=== PATIENT | male | born 1950 | race Caucasian/White ===

== ENCOUNTER 2018-11-10 14:22 | Emergency (ER) | payer MEDICARE, BC ==
--- NOTE | 2018-11-10 15:49 | EDM.PDOC ---
ED HPI GENERAL MEDICAL PROBLEM - General Chief Complaint: Genitourinary Problem Stated Complaint: TROUBLE URINATING Time Seen by Provider: 11/10/18 15:04 Source of Information: Reports: Patient History Limitations: Reports: No Limitations - History of Present Illness INITIAL COMMENTS - FREE TEXT/NARRATIVE: Patient is a 68-year-old gentleman who presents to the emergency department this afternoon with complaint of urinary retention. Patient states that he underwent prostate radiation therapy in August 2018. He said recently he doesn't feel like he completely empties his bladder. He said the symptoms are getting worsen and now is feeling pressure. Patient denies burning sensation when he urinates, nausea, vomiting, diarrhea, abdominal pain, fever, or blood in urine. Onset: Gradual Duration: Day(s): Quality: Reports: Pressure Severity: Mild Improves with: Reports: None Worsens with: Reports: None Associated Symptoms: Reports: No Other Symptoms - Related Data Allergies Allergy/AdvReac Type Severity Reaction Status Date / Time Penicillins Allergy Difficulty Verified 11/10/18 14:45 Breathing Home Meds: Home Meds Aspirin 325 mg PO DAILY 11/10/18 [History] Benazepril [Lotensin] 40 mg PO DAILY 11/10/18 [History] Social & Family History - Tobacco Use Smoking Status *Q: Never Smoker - Recreational Drug Use Recreational Drug Use: No ED ROS GENERAL - Review of Systems Review Of Systems: ROS reveals no pertinent complaints other than HPI. Constitutional: Reports: No Symptoms HEENT: Reports: No Symptoms Respiratory: Reports: No Symptoms Cardiovascular: Reports: No Symptoms Endocrine: Reports: No Symptoms GI/Abdominal: Reports: No Symptoms : Reports: Urinary Retention Musculoskeletal: Reports: No Symptoms Skin: Reports: No Symptoms Neurological: Reports: No Symptoms Psychiatric: Reports: No Symptoms Hematologic/Lymphatic: Reports: No Symptoms Immunologic: Reports: No Symptoms ED EXAM, RENAL/ - Physical Exam Exam: See Below Exam Limited By: No Limitations General Appearance: Alert, WD/WN, No Apparent Distress Throat/Mouth: Normal Inspection, Normal Oropharynx, No Airway Compromise Head: Atraumatic, Normocephalic Respiratory/Chest: No Respiratory Distress, Lungs Clear, Normal Breath Sounds, No Accessory Muscle Use, Chest Non-Tender Cardiovascular: Regular Rate, Rhythm, No Murmur GI/Abdominal: Normal Bowel Sounds, Soft, Non-Tender (Male) Exam: No Hernia, Other (Unable to access the meatus, head of penis is very firm and there is no access.). No: Circumcised, Scrotal Swelling, Scrotum Tenderness (L), Scrotum Tenderness (R), Testicular Mass, Testicular Tenderness ( L), Testicular Tenderness (R) Back Exam: Normal Inspection. No: CVA Tenderness (L), CVA Tenderness (R) Extremities: Normal Inspection Neurological: Alert, Oriented, Normal Cognition Psychiatric: Normal Affect, Normal Mood Skin Exam: Warm, Dry, Intact, Normal Color, No Rash Course - Vital Signs Last Recorded V/S: Last Vital Signs Temp 99.0 F 11/10/18 14:56 Pulse 95 11/10/18 14:56 Resp 18 11/10/18 14:56 BP 154/80 H 11/10/18 14:56 Pulse Ox 95 11/10/18 14:56 - Orders/Labs/Meds Orders: Active Orders 24 hr Category Date Time Status Insert Urinary Catheter [OM.PC] Q24H Care 11/10/18 15:15 Ordered Urinary Catheter Assessment [RC] ASDIRECTED Care 11/10/18 15:16 Ordered Labs: Laboratory Tests 11/10/18 Range/Units 15:18 Specimen Type Urinfol Urine Color Light yellow (YELLOW) Urine Appearance Clear (CLEAR) Urine pH 6.0 (5.0-9.0) Ur Specific [place] 1.010 (1.005-1.030) Urine Protein Negative (NEGATIVE) mg/dL Urine Glucose (UA) Negative (NEGATIVE) mg/dL Urine Ketones Negative (NEGATIVE) mg/dL Urine Occult Blood Negative (NEGATIVE) Urine Nitrite Negative (NEGATIVE) Urine Bilirubin Negative (NEGATIVE) Urine Urobilinogen 0.2 (0.2-1.0) E.U./dL Ur Leukocyte Esterase Trace H (NEGATIVE) Urine RBC 0-5 (0-5) /HPF Urine WBC 0-5 (0-5) /HPF Ur Epithelial Cells Occasional /LPF Urine Bacteria Occasional (NONE TO FEW) /HPF - Re-Assessments/Exams Free Text/Narrative Re-Assessment/Exam: 11/10/18 15:48 Patient afebrile, vital signs stable, 450 mL on bladder scan. Unable to place an indwelling catheter Patient will follow-up with PCP and urology. 11/10/18 15:54 Departure - Departure Time of Disposition: 15:49 Disposition: Home, Self-Care 01 Condition: Good Clinical Impression: Retention of urine - Discharge Information Referrals: PCP,Unknown [Primary Care Provider] - Forms: ED Department Discharge Additional Instructions: Follow-up at [facility] on Monday. Urology referral required. Return to emergency room sooner if symptoms continue or worsen. - My Orders Last 24 Hours: My Active Orders 11/10/18 15:15 Insert Urinary Catheter [OM.PC] Q24H 11/10/18 15:16 Urinary Catheter Assessment [RC] ASDIRECTED - Assessment/Plan Last 24 Hours: My Active Orders 11/10/18 15:15 Insert Urinary Catheter [OM.PC] Q24H 11/10/18 15:16 Urinary Catheter Assessment [RC] ASDIRECTED Assessment:: Urinary retention Plan: Follow-up with PCP and urology
== END 2018-11-10 16:10 | disposition home or self-care (01) ==
LOC: KA.ED 14:22
DX: R33.9 Retention of urine, unspecified (principal); I10 Essential (primary) hypertension; Z79.82 Long term (current) use of aspirin; Z79.899 Other long term (current) drug therapy; Z88.0 Allergy status to penicillin; Z85.46 Personal history of malignant neoplasm of prostate
CPT/HCPCS: 51702; 81001; 99283; 99284

== ENCOUNTER 2019-02-13 09:05 | Day surgery (SDC) | payer MEDICARE, BC ==
[~2019-02-13 09:05] MED LIST: Lactated Ringers 1,000 ML IV SCH; Sodium Chloride 0.9% 10 ML Syringe FLUSH PRN
[2019-02-13] MEDS ORDERED: Midazolam 1 MG/ML 2 ML SDV ONE ×2 (10:31→10:49)
[2019-02-13] MEDS ORDERED: Propofol 200 MG/20 ML SDV ONE (10:31)
[2019-02-13] MEDS ORDERED: Ketamine 500 mg/10 ML MDV ONE (10:31)
[2019-02-13] MEDS ORDERED: ceFAZolin 1 GM Vial ONE (10:32)
[2019-02-13] MEDS ORDERED: Lidocaine 2% Jelly 5 ML Tube ONE ×2 (10:46→12:00)
[2019-02-13] MEDS ORDERED: Bupivacaine 0.5% 30 ML SDV ONE (11:01)
[2019-02-13] MEDS ORDERED: Midazolam 1 MG/ML 2 ML SDV IV ONE (11:39)
[2019-02-13] MEDS ORDERED: Ketamine 200 MG/20 ML MDV IV ONE (11:39)
[2019-02-13] MEDS ORDERED: Propofol 200 MG/20 ML SDV IV ONE (11:39)
[2019-02-13] MEDS ORDERED: ceFAZolin 1 GM Vial IV ONE (11:39)
--- NOTE | 2019-02-13 12:28 | PCM.OPNOTE ---
- General Post-Op/Procedure Note Date of Surgery/Procedure: 02/13/19 Operative Procedure(s): Meatal stenosis, urethral stenosis. Pre Op Diagnosis: As above. Recent was found to have severe meatal stenosis and moderate urethral stenosis at the tip of his urethra. Anesthesia Technique: MAC Primary Surgeon: Maria A Mota Complications: None Condition: Good Free Text/Narrative:: Intake & Output 02/12/19 02/13/19 02/13/19 22:59 06:59 14:59 Output Total 150 Balance -150 Preoperative diagnosis: Severe meatal stenosis, possible urethral stenosis recent radiation therapy for prostate carcinoma. Recent acute urinary retention Postoperative diagnosis: As above and urethrostenosis at the tip of the urethra. Informed consent was obtained the patient regarding this procedure. All possible complications were thoroughly discussed with these include infection, pain, bleeding, incontinence and other unknown complications. The patient decided to proceed. He was kept in the lithotomy position after adequate sedation. His genitals were thoroughly prepped and draped in the usual fashion. Examination revealed severe meatal stenosis. The Shelton catheter was removed a small meatotomy was made inferiorly and then I passed a forward-viewing Peter Zeiss cystoscope over a 17 Czech obturator sheath. There was moderate urethral stenosis at the terminal 1 inch of the urethra. The rest of the urethra was normal. Bladder mucosa was slightly congested. The ureteric orifices could not be clearly visualized. There was no evidence of stone or neoplasm. Urethra was then dilated up to #32 dilators gently. A 12 Czech Shelton catheter was placed. Returning urine was clear. The patient was transferred to the recovery room in an excellent condition. Follow-up in the clinic in 2 days to have the catheter removed.
[2019-02-13] MEDS ORDERED: Sodium Chloride 0.9% 50 ML IV PRN (12:37)
== END 2019-02-13 14:40 | disposition home or self-care (01) ==
LOC: KA.SDS 09:05
PROVIDERS: ATTEND Family Medicine
DX: N35.911 Unspecified urethral stricture, male, meatal (principal); N32.89 Other specified disorders of bladder; N39.0 Urinary tract infection, site not specified; I10 Essential (primary) hypertension; E78.5 Hyperlipidemia, unspecified; G47.30 Sleep apnea, unspecified; L40.9 Psoriasis, unspecified; E66.01 Morbid (severe) obesity due to excess calories; Z68.43 Body mass index [BMI] 50.0-59.9, adult; Z88.0 Allergy status to penicillin; Z79.82 Long term (current) use of aspirin; Z79.899 Other long term (current) drug therapy
CPT/HCPCS: 00910; J0690; J1580; J2250; J2704; J7050; J7120

== ENCOUNTER 2021-05-03 07:50 | Emergency (ER) | payer MEDICARE, BC ==
[2021-05-03] MEDS ORDERED: Sodium Chloride 0.9% 10 ML Syringe FLUSH PRN ×3 (08:15→10:01)
--- NOTE | 2021-05-03 08:18 | EDM.PDOC ---
ED HPI GENERAL MEDICAL PROBLEM - General Chief Complaint: General Stated Complaint: NOT FEELING WELL Time Seen by Provider: 05/03/21 08:18 Source of Information: Reports: Patient, EMS - History of Present Illness INITIAL COMMENTS - FREE TEXT/NARRATIVE: Frandy, 70-year-old male, presents by ambulance to the emergency department this morning as he states he has not been feeling well for the past 3 days. This episode includes worsening weakness, inability to complete his daily regimen. States he was so weak he had to lay down at least twice, the once sounding like it was at his residence as he states between the bed and the sink. The most recent, this morning prior to ambulance being dispatched, was outside of the lumbar mall where he was too weak to water his tolbert. The event at his residence is noted that he had weakness and could not get up, states he developed pain from laying so long to his chest. He is not specific if this was cardiac type chest pain or just pain from pressure situation. He had an event of loose stool but he attributes that to eating a chocolate brownie. Denies any discomfort at this time other than when he has to be in bed as he does not tolerate supine nor even semifowler positioning. He denies any exposures, risk factors for exposures or other contributing concerns of pandemic quality. Onset: Gradual - Related Data Allergies Allergy/AdvReac Type Severity Reaction Status Date / Time Penicillins Allergy Difficulty Verified 05/03/21 08:31 Breathing Home Meds: Home Meds Aspirin 325 mg PO DAILY 11/10/18 [History] Benazepril [Lotensin] 40 mg PO DAILY 11/10/18 [History] Meclizine [Antivert] 25 mg PO Q4HR PRN 02/12/19 [History] Tamsulosin [Tamsulosin 24 Hr] 0.4 mg PO DAILY 02/12/19 [History] Triamcinolone Acetonide [Triamcinolone Acetonide 0.1% Oint] 1 applic TOP DAILY PRN 02/12/19 [History] Esomeprazole [NexIUM] 20 mg PO DAILY PRN 05/03/21 [History] atorvaSTATin [Lipitor] 10 mg PO BEDTIME 05/03/21 [History] Past Medical History HEENT History: Reports: Cataract, Hard of Hearing, Impaired Vision Cardiovascular History: Reports: Hypertension Respiratory History: Reports: None Genitourinary History: Reports: Prostate Disorder, Urinary Incontinence, Other (See Below) Other Genitourinary History: Prostate cancer, patient states he has had meatus cut bigger Neurological History: Reports: None Psychiatric History: Reports: None Endocrine/Metabolic History: Reports: Diabetes, Type II (Presumed with recent elevation, has been offered Metformin therapy and other treatments, has deferred), Obesity/BMI 30+ Oncologic (Cancer) History: Reports: Prostate Other Oncologic History: Had radiation - Infectious Disease History Infectious Disease History: Reports: Measles - Past Surgical History Cardiovascular Surgical History: Reports: None - Past Imaging History Past Imaging History: Reports: Ultrasound, Xray Social & Family History - Family History Family Medical History: No Pertinent Family History - Caffeine Use Caffeine Use: Reports: Soda ED ROS GENERAL - Review of Systems Review Of Systems: Comprehensive ROS is negative, except as noted in HPI. ED EXAM, GENERAL - Physical Exam Exam: See Below Free Text/Narrative:: Alert, oriented, he denies any distress. He is cheerful and conversive. He is mildly ashen in his overall color with no cyanosis. HEENT is negative discharge or deformity. PERRLA no icterus no injection. Moist membranes. Rhoades short neck with no rigidity. Breath sounds are diminished throughout but overall clear, likely due to body habitus. Cardiac is consistent with atrial fibrillation with very distant heart sounds likely contributed by body habitus. He has a very weak radial pulse which would be consistent with his atrial fibrillation. Extremely large rotund abdomen with no assessment properties obtained, no tenderness. rectal is deferred. He has +2 edema to the lower extremities. He is able to move himself about seated, from the bed, to the chair, to the bed, to the chair, stating when asked about discomfort that the bed is very uncomfortable for him. #1 Interpretation EKG Date: 05/03/21 Time: 08:24 Rhythm: A-Fib Rate (Beats/Min): 130 [place]: Other P-Wave: Absent QRS: Wide ST-T: Normal QT: Normal Comparison: NA - No Prior EKG Course - Vital Signs Last Recorded V/S: Last Vital Signs Temp 97 F 05/03/21 08:16 Pulse 130 H 05/03/21 08:16 Resp 24 H 05/03/21 08:16 BP 95/67 05/03/21 08:16 Pulse Ox 96 05/03/21 08:16 - Orders/Labs/Meds Orders: Active Orders 24 hr Category Date Time Status EKG Documentation Completion [RC] ASDIRECTED Care 05/03/21 08:15 Active Peripheral IV Care [RC] . DIRECTED Care 05/03/21 08:15 Active Peripheral IV Care [RC] . DIRECTED Care 05/03/21 08:28 Active Peripheral IV Care [RC] . DIRECTED Care 05/03/21 10:02 Active CULTURE BLOOD [BC] Stat Lab 05/03/21 10:10 Received CULTURE BLOOD [BC] Stat Lab 05/03/21 10:55 Received UA RFX FLORENCE AND CULT IF INDIC [URIN] Stat Lab 05/03/21 08:28 Ordered Diltiazem 125 mg Med 05/03/21 10:00 Active Sodium Chloride 0.9% [Normal Saline] 100 ml IV TITRATE Heparin Sodium/D5W 250 ml Med 05/03/21 10:45 Active IV TITRATE Sodium Chloride 0.9% [Normal Saline] 1,000 ml Med 05/03/21 09:00 Active IV ASDIRECTED Sodium Chloride 0.9% [Saline Flush] Med 05/03/21 08:15 Active 10 ml FLUSH Q8HR PRN Sodium Chloride 0.9% [Saline Flush] Med 05/03/21 08:27 Active 10 ml FLUSH Q8HR PRN Sodium Chloride 0.9% [Saline Flush] Med 05/03/21 10:01 Active 10 ml FLUSH Q8HR PRN Blood Culture x2 Reflex Set [OM.PC] Stat Oth 05/03/21 10:04 Ordered Peripheral IV Insertion Adult [OM.PC] Routine Oth 05/03/21 08:15 Ordered Peripheral IV Insertion Adult [OM.PC] Stat Oth 05/03/21 08:28 Ordered Peripheral IV Insertion Adult [OM.PC] Stat Oth 05/03/21 10:02 Ordered Medication Orders Sodium Chloride (Normal Saline) 1,000 mls @ 150 mls/hr IV ASDIRECTED AMINATA Last Infusion: 05/03/21 10:04 Dose: 999 mls/hr Documented by: Admin: 05/03/21 09:00 Dose: 150 mls/hr Documented by: JALYN Diltiazem HCl 125 mg/ Sodium (Chloride) 125 mls @ 5 mls/hr IV TITRATE AMINATA Last Admin: 05/03/21 10:31 Dose: 5 mg/hr, 5 mls/hr Documented by: JALYN Heparin Sodium/Dextrose () 250 mls @ 25.401 mls/hr IV TITRATE AMINATA Last Admin: 05/03/21 11:31 Dose: 14 units/kg/hr, 25.401 mls/hr Documented by: JALYN Cosigned by: RAFITA Sodium Chloride (Sodium Chloride 0.9% 10 Ml Syringe) 10 ml FLUSH Q8HR PRN PRN Reason: keep vein open Sodium Chloride (Sodium Chloride 0.9% 10 Ml Syringe) 10 ml FLUSH Q8HR PRN PRN Reason: keep vein open Sodium Chloride (Sodium Chloride 0.9% 10 Ml Syringe) 10 ml FLUSH Q8HR PRN PRN Reason: keep vein open Labs: Laboratory Tests 05/03/21 05/03/21 05/03/21 Range/Units 08:42 08:42 08:42 WBC 13.69 H (5.00-10.00) 10^3/uL RBC 5.26 (4.50-6.00) 10^6/uL Hgb 13.8 (13.0-17.0) g/dL Hct 43.6 (40.0-52.0) % MCV 82.9 (82.0-92.0) fL MCH 26.2 L (27.0-31.0) pg MCHC 31.7 L (32.0-36.0) g/dL RDW 14.1 (11.5-14.5) % Plt Count 185 (150-400) 10^3/uL MPV 9.2 (7.4-10.4) fL Add Manual Diff Yes Neutrophils % (Manual) 94 H (50-70) % Lymphocytes % (Manual) 4 L (20-40) % Monocytes % (Manual) 2 (2-8) % Absolute Neutrophils 12.87 Lymphocytes # (Manual) 0.55 Monocytes # (Manual) 0.27 APTT (22.8-31.4) SEC D-Dimer, Quantitative (<400) ng/mL Sodium 134 L (136-145) mmol/L Potassium 3.8 (3.5-5.1) mmol/L Chloride 98 (98-107) mmol/L Carbon Dioxide 24.8 (21.0-32.0) mmol/L Anion Gap 15.0 (5-15) mmol/L BUN 38 H (7-18) mg/dL Creatinine 2.14 H (0.51-1.17) mg/dL Est Cr Clr Drug Dosing 34.70 mL/min Estimated GFR (MDRD) 31 mL/min Glucose 187 H (70-140) mg/dL Lactic Acid 2.3 H (0.4-2.0) mmol/L Calcium 8.3 L (8.7-10.3) mg/dL Total Bilirubin 0.4 (0.2-1.0) mg/dL AST 93 H (15-37) U/L ALT 50 (14-63) U/L Alkaline Phosphatase 61 (46-116) U/L Creatine Kinase 1960 H* (26-276) U/L Troponin I High Sens 16.200 (0-76.000) pg/mL B-Natriuretic Peptide (0-100) pg/mL Total Protein 6.6 (6.4-8.2) g/dL Albumin 2.70 L (3.40-5.00) g/dL 05/03/21 05/03/21 05/03/21 Range/Units 08:42 08:42 08:42 WBC (5.00-10.00) 10^3/uL RBC (4.50-6.00) 10^6/uL Hgb (13.0-17.0) g/dL Hct (40.0-52.0) % MCV (82.0-92.0) fL MCH (27.0-31.0) pg MCHC (32.0-36.0) g/dL RDW (11.5-14.5) % Plt Count (150-400) 10^3/uL MPV (7.4-10.4) fL Add Manual Diff Neutrophils % (Manual) (50-70) % Lymphocytes % (Manual) (20-40) % Monocytes % (Manual) (2-8) % Absolute Neutrophils Lymphocytes # (Manual) Monocytes # (Manual) APTT 34.4 H (22.8-31.4) SEC D-Dimer, Quantitative 1630 H (<400) ng/mL Sodium (136-145) mmol/L Potassium (3.5-5.1) mmol/L Chloride (98-107) mmol/L Carbon Dioxide (21.0-32.0) mmol/L Anion Gap (5-15) mmol/L BUN (7-18) mg/dL Creatinine (0.51-1.17) mg/dL Est Cr Clr Drug Dosing mL/min Estimated GFR (MDRD) mL/min Glucose (70-140) mg/dL Lactic Acid (0.4-2.0) mmol/L Calcium (8.7-10.3) mg/dL Total Bilirubin (0.2-1.0) mg/dL AST (15-37) U/L ALT (14-63) U/L Alkaline Phosphatase (46-116) U/L Creatine Kinase (26-276) U/L Troponin I High Sens (0-76.000) pg/mL B-Natriuretic Peptide 67 (0-100) pg/mL Total Protein (6.4-8.2) g/dL Albumin (3.40-5.00) g/dL 05/03/21 Range/Units 12:30 WBC (5.00-10.00) 10^3/uL RBC (4.50-6.00) 10^6/uL Hgb (13.0-17.0) g/dL Hct (40.0-52.0) % MCV (82.0-92.0) fL MCH (27.0-31.0) pg MCHC (32.0-36.0) g/dL RDW (11.5-14.5) % Plt Count (150-400) 10^3/uL MPV (7.4-10.4) fL Add Manual Diff Neutrophils % (Manual) (50-70) % Lymphocytes % (Manual) (20-40) % Monocytes % (Manual) (2-8) % Absolute Neutrophils Lymphocytes # (Manual) Monocytes # (Manual) APTT (22.8-31.4) SEC D-Dimer, Quantitative (<400) ng/mL Sodium (136-145) mmol/L Potassium (3.5-5.1) mmol/L Chloride (98-107) mmol/L Carbon Dioxide (21.0-32.0) mmol/L Anion Gap (5-15) mmol/L BUN (7-18) mg/dL Creatinine (0.51-1.17) mg/dL Est Cr Clr Drug Dosing mL/min Estimated GFR (MDRD) mL/min Glucose (70-140) mg/dL Lactic Acid 2.0 (0.4-2.0) mmol/L Calcium (8.7-10.3) mg/dL Total Bilirubin (0.2-1.0) mg/dL AST (15-37) U/L ALT (14-63) U/L Alkaline Phosphatase (46-116) U/L Creatine Kinase (26-276) U/L Troponin I High Sens (0-76.000) pg/mL B-Natriuretic Peptide (0-100) pg/mL Total Protein (6.4-8.2) g/dL Albumin (3.40-5.00) g/dL Meds: Medications Generic Name Dose Route Start Last Admin Trade Name Freq PRN Reason Stop Dose Admin Sodium Chloride 1,000 mls @ 150 mls/hr 05/03/21 09:00 05/03/21 10:04 Normal Saline IV 999 mls/hr ASDIRECTED AMINATA Infusion Diltiazem HCl 125 mg/ Sodium 125 mls @ 5 mls/hr 05/03/21 10:00 05/03/21 10:31 Chloride IV 5 mg/hr TITRATE AMINATA 5 mls/hr Administration 5 MG/HR Heparin Sodium/Dextrose 250 mls @ 25.401 mls/hr 05/03/21 10:45 05/03/21 11:31 IV 14 units/kg/hr TITRATE AMINATA 25.401 mls/hr Administration 14 UNITS/KG/HR Sodium Chloride 10 ml 05/03/21 08:15 Sodium Chloride 0.9% 10 Ml Syringe FLUSH Q8HR PRN keep vein open Sodium Chloride 10 ml 05/03/21 08:27 Sodium Chloride 0.9% 10 Ml Syringe FLUSH Q8HR PRN keep vein open Sodium Chloride 10 ml 05/03/21 10:01 Sodium Chloride 0.9% 10 Ml Syringe FLUSH Q8HR PRN keep vein open Discontinued Medications Generic Name Dose Route Start Last Admin Trade Name Freq PRN Reason Stop Dose Admin Diltiazem HCl 20 mg 05/03/21 08:45 05/03/21 09:00 Diltiazem 25 Mg/5 Ml Sdv IVPUSH 05/03/21 08:46 20 mg ONETIME ONE Administration Heparin Sodium (Porcine) 4,000 units 05/03/21 10:32 05/03/21 11:31 Heparin Sodium 5,000 Units/Ml Vial IVPUSH 05/03/21 10:33 4,000 units .BOLUS ONE Administration Sodium Chloride 1,000 mls @ 999 mls/hr 05/03/21 10:05 05/03/21 11:30 Normal Saline IV 05/03/21 11:05 999 mls/hr .BOLUS ONE Administration Sodium Chloride 1,000 mls @ 999 mls/hr 05/03/21 10:06 Normal Saline IV 05/03/21 11:06 .BOLUS ONE Levofloxacin/Dextrose 500 mg/ 100 mls @ 100 mls/hr 05/03/21 10:25 05/03/21 10:40 Premix IV 05/03/21 11:24 100 mls/hr ONETIME ONE Administration Levofloxacin/Dextrose 250 mg/ 50 mls @ 50 mls/hr 05/03/21 10:26 05/03/21 12:04 Premix IV 05/03/21 11:25 50 mls/hr ONETIME ONE Administration - Re-Assessments/Exams Free Text/Narrative Re-Assessment/Exam: 05/03/21 09:14 Cardizem bolus administered with rate slowing down into the 90s with an occasional P waves seen, then speeding back up into the 1 teens. Radial pulse remains present but blood pressure cuff, due to body habitus, unfortunately on his wrist, reveals consistent hypotensive readings in the 70s and 80s over 50s-60s. Free Text/Narrative Re-Assessment/Exam: 05/03/21 10:16 Contact [facility] [phone]: Dr Varma accepting, with advise of Heparin, Cardizem, fluid bolus, abx 05/03/21 12:03 Resting comfortably with no complaints other than positioning. Questioning what is taking so long to get transferred. 05/03/21 14:17 Resting comfortably with no complaints other than aches and pains from the cart. States he might be feeling slightly better. Impatiently/anxiously awaiting transfer to [place]. Departure - Departure Time of Disposition: 15:00 Disposition: DC/Tfer to Acute Hospital 02 Condition: Fair Clinical Impression: Atrial fibrillation with RVR, Weakness, Elevated d-dimer, Hyperglycemia, Elevated AST (SGOT), Lactic acid increased Rhabdomyolysis Qualifiers: Rhabdomyolysis type: non-traumatic Qualified Code(s): M62.82 - Rhabdomyolysis Renal failure Qualifiers: Renal failure chronicity: acute - Discharge Information *PRESCRIPTION DRUG MONITORING PROGRAM REVIEWED*: Not Applicable *COPY OF PRESCRIPTION DRUG MONITORING REPORT IN PATIENT JAN: Not Applicable Referrals: Nancie Baer, [employer] [Primary Care Provider] - Forms: ED Department Discharge Additional Instructions: Contact with [facility] for consult with Dr Varma for accepting. Waiting bed confirmation for ALS transfer to [place]. Sepsis Event Note (ED) - Focused Exam Vital Signs: Vital Signs Temp Pulse Resp BP Pulse Ox 05/03/21 08:16 97 F 130 H 24 H 95/67 96 - Problem List & Annotations (1) Atrial fibrillation with RVR SNOMED Code(s): 525489638178357 Code(s): I48.91 - UNSPECIFIED ATRIAL FIBRILLATION Status: Acute Current Visit: Yes (2) Weakness SNOMED Code(s): 07801977 Code(s): R53.1 - WEAKNESS Status: Acute Current Visit: Yes (3) Rhabdomyolysis SNOMED Code(s): 933595661 Code(s): M62.82 - RHABDOMYOLYSIS Status: Acute Current Visit: Yes Qualifiers: Rhabdomyolysis type: non-traumatic Qualified Code(s): M62.82 - Rhabdomyolysis (4) Elevated d-dimer SNOMED Code(s): 161343800 Code(s): R79.89 - OTHER SPECIFIED ABNORMAL FINDINGS OF BLOOD CHEMISTRY Status: Acute Priority: High Current Visit: Yes (5) Renal failure SNOMED Code(s): 70279356 Code(s): N19 - UNSPECIFIED KIDNEY FAILURE Status: Acute Priority: High Current Visit: Yes Qualifiers: Renal failure chronicity: acute (6) Hyperglycemia SNOMED Code(s): 04687031 Code(s): R73.9 - HYPERGLYCEMIA, UNSPECIFIED Status: Chronic Priority: Medium Current Visit: Yes (7) Lactic acid increased SNOMED Code(s): 73533469 Code(s): E87.2 - ACIDOSIS Status: Acute Priority: High Current Visit: Yes (8) Elevated AST (SGOT) SNOMED Code(s): 094320611 Code(s): R74.01 - ELEVATION OF LEVELS OF LIVER TRANSAMINASE LEVELS Status: Acute Priority: High Current Visit: Yes - Problem List Review Problem List Initiated/Reviewed/Updated: Yes - My Orders Last 24 Hours: My Active Orders 05/03/21 08:15 EKG Documentation Completion [RC] ASDIRECTED Peripheral IV Care [RC] . DIRECTED Sodium Chloride 0.9% [Saline Flush] 10 ml FLUSH Q8HR PRN Peripheral IV Insertion Adult [OM.PC] Routine 05/03/21 08:27 Sodium Chloride 0.9% [Saline Flush] 10 ml FLUSH Q8HR PRN 05/03/21 08:28 Peripheral IV Care [RC] . DIRECTED UA RFX [place] AND CULT IF INDIC [URIN] Stat Peripheral IV Insertion Adult [OM.PC] Stat 05/03/21 09:00 Sodium Chloride 0.9% [Normal Saline] 1,000 ml IV ASDIRECTED 05/03/21 10:00 Diltiazem 125 mg Sodium Chloride 0.9% [Normal Saline] 100 ml IV TITRATE 05/03/21 10:01 Sodium Chloride 0.9% [Saline Flush] 10 ml FLUSH Q8HR PRN 05/03/21 10:02 Peripheral IV Care [RC] . DIRECTED Peripheral IV Insertion Adult [OM.PC] Stat 05/03/21 10:04 Blood Culture x2 Reflex Set [OM.PC] Stat 05/03/21 10:10 CULTURE BLOOD [BC] Stat 05/03/21 10:45 Heparin Sodium/D5W 250 ml IV TITRATE 05/03/21 10:55 CULTURE BLOOD [BC] Stat - Assessment/Plan Last 24 Hours: My Active Orders 05/03/21 08:15 EKG Documentation Completion [RC] ASDIRECTED Peripheral IV Care [RC] . DIRECTED Sodium Chloride 0.9% [Saline Flush] 10 ml FLUSH Q8HR PRN Peripheral IV Insertion Adult [OM.PC] Routine 05/03/21 08:27 Sodium Chloride 0.9% [Saline Flush] 10 ml FLUSH Q8HR PRN 05/03/21 08:28 Peripheral IV Care [RC] . DIRECTED UA RFX [place] AND CULT IF INDIC [URIN] Stat Peripheral IV Insertion Adult [OM.PC] Stat 05/03/21 09:00 Sodium Chloride 0.9% [Normal Saline] 1,000 ml IV ASDIRECTED 05/03/21 10:00 Diltiazem 125 mg Sodium Chloride 0.9% [Normal Saline] 100 ml IV TITRATE 05/03/21 10:01 Sodium Chloride 0.9% [Saline Flush] 10 ml FLUSH Q8HR PRN 05/03/21 10:02 Peripheral IV Care [RC] . DIRECTED Peripheral IV Insertion Adult [OM.PC] Stat 05/03/21 10:04 Blood Culture x2 Reflex Set [OM.PC] Stat 05/03/21 10:10 CULTURE BLOOD [BC] Stat 05/03/21 10:45 Heparin Sodium/D5W 250 ml IV TITRATE 05/03/21 10:55 CULTURE BLOOD [BC] Stat Plan: Contact with [facility] for consult with Dr Varma for accepting. Waiting bed confirmation for ALS transfer to [facility].
--- NOTE | 2021-05-03 08:48 | CR ---
[id number] RAD/RAD Chest PA or AP 1V EXAM: RAD Chest PA or AP 1V INDICATION: WEAKNESS. COMPARISON: None. DISCUSSION: Cardiomediastinal silhouette is normal in size and contour. No infiltrate, effusion, pneumothorax, or edema. IMPRESSION: No acute cardiopulmonary abnormality. Javier Blue DO 05/03/21 0847 Thank you for allowing us to participate in the care of your patient.
[2021-05-03] MEDS: Diltiazem 25 MG/5 ML SDV IVPUSH ONE (09:00)
[2021-05-03] MEDS: Sodium Chloride 0.9% 1,000 ML IV SCH (09:00)
[2021-05-03] MEDS: Diltiazem 125 MG in Sodium Chloride 0.9% 100 ML IV SCH (10:31)
[2021-05-03] MEDS: Levofloxacin/Dextrose 5%-Water 500 MG in Premix Bag 1 BAG IV ONE (10:40)
[2021-05-03] MEDS: Sodium Chloride 0.9% 1,000 ML IV ONE (11:30)
[2021-05-03] MEDS: Heparin Sodium/D5W 250 ML IV SCH (11:31)
[2021-05-03] MEDS: Heparin Sodium 5,000 Units/ML Vial IVPUSH ONE (11:31)
[2021-05-03] MEDS: Levofloxacin/Dextrose 5%-Water 250 MG in Premix Bag 1 BAG IV ONE (12:04)
[2021-05-04] MEDS: Sodium Chloride 0.9% 1,000 ML IV ONE (12:42)
== END 2021-05-03 15:00 ==
LOC: KA.ED 07:50
DX: N17.9 Acute kidney failure, unspecified (principal); E11.65 Type 2 diabetes mellitus with hyperglycemia; E87.2 Acidosis; M62.82 Rhabdomyolysis; I48.91 Unspecified atrial fibrillation; R79.89 Other specified abnormal findings of blood chemistry; I10 Essential (primary) hypertension; E66.9 Obesity, unspecified; Z68.43 Body mass index [BMI] 50.0-59.9, adult; Z79.2 Long term (current) use of antibiotics; Z79.899 Other long term (current) drug therapy; Z88.0 Allergy status to penicillin
CPT/HCPCS: 36415; 71045; 80053; 81001; 82550; 83605; 83880; 84484; 85025; 85379; 85730; 87040; 87086; 87088; 93005; 96365; 96366; 96368; 96376; 99284; 99285-25; J1644; J1956; J3490; J7030

== ENCOUNTER 2023-11-24 18:13 | Inpatient (IN) | payer BC, MEDICARE, OTHER ==
[2023-11-24] MEDS: Albuterol/Ipratropium 3.0-0.5 MG/3 ML Neb Soln ONE (18:40)
[2023-11-24 19:10] LABS: BASOPHILS ABSOLUTE AUTO 0.02 10^3/uL (0.00-0.10); BASOPHILS PERCENT AUTO 0.2 % (0.0-1.0); EOSINOPHILS ABSOLUTE AUTO 0.24 10^3/uL (0.10-0.30); EOSINOPHILS PERCENT AUTO 2.8 % (1.0-3.0); HEMATOCRIT 46.7 % (40.0-52.0); IMMATURE GRAN ABSOLUTE AUTO 0.04 10^3/uL (0.00-0.50); IMMATURE GRAN PERCENT AUTO 0.5 % (0.0-5.0); LYMPHOCYTES ABSOLUTE AUTO 0.63 10^3/uL (1.00-4.00); LYMPHOCYTES PERCENT AUTO 7.4 % (20.0-40.0); MEAN CORPUSCULAR HEMOGLOBIN 25.6 pg (27.0-31.0); MEAN CORPUSCULAR VOLUME 85.4 fL (82.0-92.0); MEAN PLATELET VOLUME 9.2 fL (7.4-10.4); MONOCYTES ABSOLUTE AUTO 0.74 10^3/uL (0.10-0.80); MONOCYTES PERCENT AUTO 8.7 % (2.0-8.0); NEUTROPHILS ABSOLUTE AUTO 6.81 10^3/uL (2.50-7.00); NEUTROPHILS PERCENT AUTO 80.4 % (50.0-70.0); PLATELET COUNT,PLT 164 10^3/uL (150-400); RED BLOOD CELL COUNT 5.47 10^6/uL (4.50-6.00); RED CELL DISTRIBUTION WIDTH 14.1 % (11.5-14.5); WHITE BLOOD CELL COUNT,WBC 8.48 10^3/uL (5.00-10.00)
[2023-11-24 19:30] LABS: INFLUENZA A NAA NEGATIVE (NEGATIVE); INFLUENZA B NAA NEGATIVE (NEGATIVE); RESPIRATORY SYNCYTIAL VIR NAA NEGATIVE (NEGATIVE)
[2023-11-24 19:34] LABS: ALBUMIN 3.32 g/dL (3.40-5.00); BILIRUBIN TOTAL 0.5 mg/dL (0.2-1.0); CALCIUM 8.7 mg/dL (8.7-10.3); CARBON DIOXIDE,CO2 29.2 mmol/L (21.0-32.0); CREATININE 0.76 mg/dL (0.51-1.17); EST CRCL DRUG DOSING (CG) 93.57 mL/min; POTASSIUM,K 4.2 mmol/L (3.5-5.1); PROTEIN TOTAL,TP 6.5 g/dL (6.4-8.2)
[2023-11-24 19:36] LABS: CORONAVIRUS COVID-19 NAA NEGATIVE (NEGATIVE)
[2023-11-24] MEDS: Sodium Chloride 0.9% 1,000 ML IV ONE (20:17)
[2023-11-24] MEDS: cefTRIAXone 2 GM Vial IVPUSH ONE (20:20)
[2023-11-24] MEDS: Azithromycin 500 MG in Sodium Chloride 0.9% 250 ML IV ONE (20:51)
[2023-11-24] MEDS ORDERED: Glucagon,Human Recombinant 1 MG Vial IM PRN (21:40)
[2023-11-24] MEDS ORDERED: 50% Dextrose in Water 50 ML Syringe IVPUSH PRN (21:40)
[2023-11-24] MEDS ORDERED: Ondansetron 4 MG Tab.DIS PO PRN (21:40)
[2023-11-24] MEDS ORDERED: Pantoprazole 40 MG Tab.CR PO PRN (22:04)
[2023-11-24] MEDS: Insulin Glargine,Hum.Rec.Anlog 100 UNIT/ML 3 ML Pen SUBCUT SCH (22:10)
[2023-11-25] MEDS: Acetaminophen 325 MG Tab PO PRN (00:31)
[2023-11-25] MEDS: guaiFENesin/Dextromethorphan 100-10 MG/5 ML Soln 5 ML Cup PO PRN (00:35)
[2023-11-25 07:17] LABS: BASOPHILS ABSOLUTE AUTO 0.02 10^3/uL (0.00-0.10); BASOPHILS PERCENT AUTO 0.2 % (0.0-1.0); EOSINOPHILS ABSOLUTE AUTO 0.14 10^3/uL (0.10-0.30); EOSINOPHILS PERCENT AUTO 1.7 % (1.0-3.0); HEMOGLOBIN 13.4 g/dL (13.0-17.0); IMMATURE GRAN ABSOLUTE AUTO 0.12 10^3/uL (0.00-0.50); IMMATURE GRAN PERCENT AUTO 1.5 % (0.0-5.0); LYMPHOCYTES ABSOLUTE AUTO 0.57 10^3/uL (1.00-4.00); LYMPHOCYTES PERCENT AUTO 7.1 % (20.0-40.0); MEAN CORPUSCULAR HEMOGLOBIN 25.5 pg (27.0-31.0); MEAN CORPUSCULAR HGB CONC 29.1 g/dL (32.0-36.0); MEAN CORPUSCULAR VOLUME 87.6 fL (82.0-92.0); MEAN PLATELET VOLUME 8.7 fL (7.4-10.4); MONOCYTES PERCENT AUTO 8.7 % (2.0-8.0); NEUTROPHILS ABSOLUTE AUTO 6.46 10^3/uL (2.50-7.00); NEUTROPHILS PERCENT AUTO 80.8 % (50.0-70.0); PLATELET COUNT,PLT 156 10^3/uL (150-400); RED BLOOD CELL COUNT 5.25 10^6/uL (4.50-6.00); WHITE BLOOD CELL COUNT,WBC 8.01 10^3/uL (5.00-10.00)
[2023-11-25 07:34] LABS: ANION GAP 10.4 mmol/L (5-15); CALCIUM 8.3 mg/dL (8.7-10.3); CARBON DIOXIDE,CO2 31.8 mmol/L (21.0-32.0); CREATININE 0.76 mg/dL (0.51-1.17); EST CRCL DRUG DOSING (CG) 93.57 mL/min; POTASSIUM,K 4.2 mmol/L (3.5-5.1)
[2023-11-25] MEDS: Insulin Lispro 100 Unit/ML 3 ML KwikPen SUBCUT SCH (07:46)
[2023-11-25] MEDS: Azithromycin 250 MG Tab PO SCH (08:06)
[2023-11-25] MEDS: Apixaban 5 MG Tab PO SCH (08:06)
[2023-11-25] MEDS: Tamsulosin 0.4 MG Cap.ER PO SCH (08:06)
[2023-11-25] MEDS: Metoprolol Tartrate 25 MG Tab PO SCH (08:07)
[2023-11-25] MEDS: Furosemide 40 MG/4 ML VIAL IVPUSH SCH ×2 (10:10→17:25)
[2023-11-25] MEDS: Albuterol/Ipratropium 3.0-0.5 MG/3 ML Neb Soln NEB PRN (12:32)
[2023-11-25] MEDS: cefTRIAXone 2 GM Vial IVPUSH SCH (17:30)
[2023-11-25] MEDS: methylPREDNISolone Sod Succ 1,000 MG in Sodium Chloride 0.9% 100 ML IV SCH (19:06)
[2023-11-25] MEDS: atorvaSTATin 10 MG Tab PO SCH (20:06)
[2023-11-26 07:47] LABS: BASOPHILS ABSOLUTE AUTO 0.03 10^3/uL (0.00-0.10); BASOPHILS PERCENT AUTO 0.4 % (0.0-1.0); EOSINOPHILS ABSOLUTE AUTO 0.19 10^3/uL (0.10-0.30); EOSINOPHILS PERCENT AUTO 2.7 % (1.0-3.0); HEMATOCRIT 44.8 % (40.0-52.0); HEMOGLOBIN 13.2 g/dL (13.0-17.0); IMMATURE GRAN ABSOLUTE AUTO 0.03 10^3/uL (0.00-0.50); IMMATURE GRAN PERCENT AUTO 0.4 % (0.0-5.0); LYMPHOCYTES ABSOLUTE AUTO 0.68 10^3/uL (1.00-4.00); LYMPHOCYTES PERCENT AUTO 9.5 % (20.0-40.0); MEAN CORPUSCULAR HEMOGLOBIN 25.6 pg (27.0-31.0); MEAN CORPUSCULAR HGB CONC 29.5 g/dL (32.0-36.0); MONOCYTES ABSOLUTE AUTO 0.64 10^3/uL (0.10-0.80); NEUTROPHILS ABSOLUTE AUTO 5.57 10^3/uL (2.50-7.00); PLATELET COUNT,PLT 147 10^3/uL (150-400); RED BLOOD CELL COUNT 5.15 10^6/uL (4.50-6.00); RED CELL DISTRIBUTION WIDTH 14.1 % (11.5-14.5); WHITE BLOOD CELL COUNT,WBC 7.14 10^3/uL (5.00-10.00)
[2023-11-26 08:15] LABS: ANION GAP 8.9 mmol/L (5-15); CALCIUM 8.5 mg/dL (8.7-10.3); CARBON DIOXIDE,CO2 34.1 mmol/L (21.0-32.0); CREATININE 0.79 mg/dL (0.51-1.17); EST CRCL DRUG DOSING (CG) 90.02 mL/min; MAGNESIUM 1.7 mg/dL (1.8-2.4)
[2023-11-26 09:02] LABS: HEMOGLOBIN A1C 6.9 % (4.3-5.7)
[2023-11-26] MEDS: Fluticasone NASAL Spray 16 GM Bottle NASBOTH SCH (10:18)
[2023-11-26] MEDS: guaiFENesin 600 MG Tab.ER PO SCH (10:19)
[2023-11-26] MEDS: Magnesium Oxide 500 MG Tab PO SCH (10:19)
[2023-11-26] MEDS: predniSONE 20 MG Tab ONE (11:50)
[2023-11-27 07:36] LABS: BASOPHILS ABSOLUTE AUTO 0.03 10^3/uL (0.00-0.10); BASOPHILS PERCENT AUTO 0.3 % (0.0-1.0); EOSINOPHILS ABSOLUTE AUTO 0.23 10^3/uL (0.10-0.30); EOSINOPHILS PERCENT AUTO 2.6 % (1.0-3.0); HEMATOCRIT 46.6 % (40.0-52.0); HEMOGLOBIN 13.9 g/dL (13.0-17.0); IMMATURE GRAN ABSOLUTE AUTO 0.03 10^3/uL (0.00-0.50); IMMATURE GRAN PERCENT AUTO 0.3 % (0.0-5.0); LYMPHOCYTES ABSOLUTE AUTO 0.86 10^3/uL (1.00-4.00); LYMPHOCYTES PERCENT AUTO 9.8 % (20.0-40.0); MEAN CORPUSCULAR HEMOGLOBIN 25.6 pg (27.0-31.0); MEAN CORPUSCULAR HGB CONC 29.8 g/dL (32.0-36.0); MEAN CORPUSCULAR VOLUME 85.7 fL (82.0-92.0); MONOCYTES ABSOLUTE AUTO 0.84 10^3/uL (0.10-0.80); MONOCYTES PERCENT AUTO 9.5 % (2.0-8.0); NEUTROPHILS ABSOLUTE AUTO 6.82 10^3/uL (2.50-7.00); NEUTROPHILS PERCENT AUTO 77.5 % (50.0-70.0); PLATELET COUNT,PLT 169 10^3/uL (150-400); RED BLOOD CELL COUNT 5.44 10^6/uL (4.50-6.00); RED CELL DISTRIBUTION WIDTH 13.9 % (11.5-14.5); WHITE BLOOD CELL COUNT,WBC 8.81 10^3/uL (5.00-10.00)
[2023-11-27 07:56] LABS: ANION GAP 8.5 mmol/L (5-15); CALCIUM 8.8 mg/dL (8.7-10.3); CARBON DIOXIDE,CO2 36.4 mmol/L (21.0-32.0); CREATININE 0.74 mg/dL (0.51-1.17); EST CRCL DRUG DOSING (CG) 96.1 mL/min; MAGNESIUM 1.8 mg/dL (1.8-2.4); POTASSIUM,K 3.9 mmol/L (3.5-5.1)
[2023-11-27] MEDS: predniSONE 20 MG Tab PO SCH (07:57)
== END 2023-11-27 16:50 | disposition home or self-care (01) | DRG 193 ==
LOC: KA.ED 18:13 → KA.MS 19:00
PROVIDERS: ADMIT Physician Assistant Surgical; ATTEND Family Medicine
DX: J15.9 Unspecified bacterial pneumonia (principal); R09.02 Hypoxemia; J96.01 Acute respiratory failure with hypoxia; I10 Essential (primary) hypertension; Z68.43 Body mass index [BMI] 50.0-59.9, adult; I48.19 Other persistent atrial fibrillation; E87.20 Acidosis, unspecified; H91.90 Unspecified hearing loss, unspecified ear; E11.9 Type 2 diabetes mellitus without complications; E66.01 Morbid (severe) obesity due to excess calories; G47.33 Obstructive sleep apnea (adult) (pediatric); I11.9 Hypertensive heart disease without heart failure; I27.20 Pulmonary hypertension, unspecified; Z88.0 Allergy status to penicillin; Z79.82 Long term (current) use of aspirin; Z79.51 Long term (current) use of inhaled steroids; Z79.899 Other long term (current) drug therapy; Z79.01 Long term (current) use of anticoagulants; Z79.84 Long term (current) use of oral hypoglycemic drugs; Z85.46 Personal history of malignant neoplasm of prostate; Z11.52 Encounter for screening for COVID-19
CPT/HCPCS: 0241U; 36415; 71046; 80048; 80053; 82947; 83036; 83605; 83735; 83880; 85025; 87040; 96374; 96375; 99284; 99285-25; A9270-GY; J0456; J0696; J1815-GY; J1940; J7030; J7050; J7512; J7620-GY; Q3014

== ENCOUNTER 2025-04-19 19:00 | Emergency (ER) | payer MEDICARE ==
[2025-04-19] MEDS ORDERED: Sodium Chloride 0.9% 10 ML Syringe FLUSH PRN (19:03)
[2025-04-19] MEDS: Sodium Chloride 0.9% 1,000 ML IV ONE (19:15)
[2025-04-19 19:23] LABS: BASOPHILS ABSOLUTE AUTO 0.01 10^3/uL (0.00-0.10); BASOPHILS PERCENT AUTO 0.1 % (0.0-1.0); HEMATOCRIT 43.2 % (40.0-52.0); HEMOGLOBIN 13.7 g/dL (13.0-17.0); IMMATURE GRAN PERCENT AUTO 0.6 % (0.0-0.4); LYMPHOCYTES ABSOLUTE AUTO 0.31 10^3/uL (1.00-4.00); MEAN CORPUSCULAR HEMOGLOBIN 26.8 pg (27.0-31.0); MEAN CORPUSCULAR HGB CONC 31.7 g/dL (32.0-36.0); MEAN CORPUSCULAR VOLUME 84.4 fL (82.0-92.0); MEAN PLATELET VOLUME 9.1 fL (7.4-10.4); MONOCYTES PERCENT AUTO 2.6 % (2.0-8.0); NEUTROPHILS ABSOLUTE AUTO 14.81 10^3/uL (2.50-7.00); NEUTROPHILS PERCENT AUTO 94.7 % (50.0-70.0); PLATELET COUNT,PLT 145 10^3/uL (150-400); RED BLOOD CELL COUNT 5.12 10^6/uL (4.50-6.00); WHITE BLOOD CELL COUNT,WBC 15.63 10^3/uL (5.00-10.00)
[2025-04-19] MEDS: Metoprolol Tartrate 5 MG/5 ML SDV IVPUSH ONE (19:35)
[2025-04-19 19:41] LABS: ALANINE AMINOTRANSFERASE,ALT 13 U/L (14-63); ALBUMIN 3.52 g/dL (3.40-5.00); ALKALINE PHOSPHATASE 73 U/L (46-116); ANION GAP 14.7 mmol/L (5-15); ASPARTATE AMNIOTRANSFERASE,AST 18 U/L (15-37); BILIRUBIN TOTAL 1.2 mg/dL (0.2-1.0); BLOOD UREA NITROGEN,BUN 12 mg/dL (7-18); CALCIUM 8.7 mg/dL (8.7-10.3); CARBON DIOXIDE,CO2 25.6 mmol/L (21.0-32.0); CHLORIDE,CL 104 mmol/L (98-107); GLUCOSE RANDOM 143 mg/dL (70-140); POTASSIUM,K 3.3 mmol/L (3.5-5.1); PROTEIN TOTAL,TP 6.4 g/dL (6.4-8.2); SODIUM,NA 141 mmol/L (136-145)
[2025-04-19 19:44] LABS: ESTIMATED GFR 93 mL/min (>=60)
[2025-04-19] MEDS: Cefepime 2 GM Vial IVPUSH ONE (19:44)
[2025-04-19 19:46] LABS: APPEARANCE,URINE CLEAR (CLEAR); BILIRUBIN,URINE NEGATIVE (NEGATIVE); COLOR,URINE YELLOW (YELLOW); GLUCOSE,URINE NEGATIVE (NEGATIVE); KETONES,URINE NEGATIVE (NEGATIVE); LEUKOCYTE ESTERASE,URINE NEGATIVE (NEGATIVE); NITRITE,URINE NEGATIVE (NEGATIVE); OCCULT BLOOD,URINE TRACE-LYSED (NEGATIVE); PROTEIN,URINE NEGATIVE (NEGATIVE); UROBILINOGEN,URINE 0.2 E.U./dL (0.2-1.0)
[2025-04-19 19:50] LABS: BACTERIA,URINE RARE /HPF (NONE TO FEW); EPITHELIAL CELLS,URINE RARE /LPF; WBC,URINE 0-5 /HPF (0-5)
[2025-04-19 19:53] LABS: INR 1.3 (0.9-1.1); PROTHROMBIN TIME 13.1 SEC (9.1-12.0); PTT,PARTIAL THROMBOPLSTIN TIME 26.7 SEC (21.6-32.4)
[2025-04-19] MEDS: Amiodarone/Dextrose,Iso-Osmotic 150 MG/100 ML Premix Bag IV ONE (20:03)
[2025-04-19] MEDS: Sodium Chloride 0.9% 1,000 ML ONE (20:08)
[2025-04-19] MEDS: Amiodarone 360 MG/200 ML 540 MG/300 ML BAG IV SCH (20:18)
[2025-04-19] MEDS: Sodium Chloride 0.9% 1,000 ML IV SCH (20:25)
[2025-04-19] MEDS: Amiodarone 360 MG/200 ML 200 ML ONE (20:26)
== END 2025-04-19 21:15 ==
LOC: KA.ED 19:00
DX: T67.5XXA Heat exhaustion, unspecified, initial encounter (principal); I48.91 Unspecified atrial fibrillation; R09.02 Hypoxemia; I10 Essential (primary) hypertension; E78.00 Pure hypercholesterolemia, unspecified; E11.9 Type 2 diabetes mellitus without complications; E66.9 Obesity, unspecified; Z86.16 Personal history of COVID-19; Z79.82 Long term (current) use of aspirin; Z79.899 Other long term (current) drug therapy; Z79.84 Long term (current) use of oral hypoglycemic drugs; Z88.0 Allergy status to penicillin; Z68.43 Body mass index [BMI] 50.0-59.9, adult
CPT/HCPCS: 36415; 51702; 70450; 71045; 80053; 81001; 83605; 83880; 84484; 85025; 85610; 85730; 87040; 87186; 93010; 96361; 96365; 96375; 99284; 99285-25; J0283; J0692; J3490; J7030; Q3014

== ENCOUNTER 2025-05-16 14:02 | Inpatient (IN) | payer MEDICARE ==
[2025-05-16] MEDS ORDERED: 50% Dextrose in Water 50 ML Syringe IVPUSH PRN ×2 (21:07→21:15)
[2025-05-16] MEDS ORDERED: Glucose Gel 15 GM in 37.5 GM Tube PO PRN (21:15)
[2025-05-17 07:26] LABS: BASOPHILS ABSOLUTE AUTO 0.05 10^3/uL (0.00-0.10); BASOPHILS PERCENT AUTO 0.9 % (0.0-1.0); EOSINOPHILS ABSOLUTE AUTO 0.26 10^3/uL (0.10-0.30); EOSINOPHILS PERCENT AUTO 4.6 % (1.0-3.0); IMMATURE GRAN ABSOLUTE AUTO 0.02 10^3/uL (0.00-0.04); IMMATURE GRAN PERCENT AUTO 0.4 % (0.0-0.4); LYMPHOCYTES ABSOLUTE AUTO 0.81 10^3/uL (1.00-4.00); LYMPHOCYTES PERCENT AUTO 14.4 % (20.0-40.0); MEAN PLATELET VOLUME 9.9 fL (7.4-10.4); MONOCYTES ABSOLUTE AUTO 0.47 10^3/uL (0.10-0.80); MONOCYTES PERCENT AUTO 8.4 % (2.0-8.0); NEUTROPHILS ABSOLUTE AUTO 4.00 10^3/uL (2.50-7.00); NEUTROPHILS PERCENT AUTO 71.3 % (50.0-70.0); PLATELET COUNT,PLT 163 10^3/uL (150-400); RED BLOOD CELL COUNT 3.83 10^6/uL (4.50-6.00); RED CELL DISTRIBUTION WIDTH 15.0 % (11.5-14.5); WHITE BLOOD CELL COUNT,WBC 5.61 10^3/uL (5.00-10.00)
[2025-05-17 07:41] LABS: BLOOD UREA NITROGEN,BUN 24.0 mg/dL (7-18); CARBON DIOXIDE,CO2 34.9 mmol/L (21.0-32.0); CHLORIDE,CL 107.0 mmol/L (98-107); CREATININE 1.8 mg/dL (0.51-1.17); EST CRCL DRUG DOSING (CG) 40.12 mL/min; ESTIMATED GFR 39.0 mL/min (>=60); GLUCOSE RANDOM 89.0 mg/dL (70-140); POTASSIUM,K 4.1 mmol/L (3.5-5.1); SODIUM,NA 145.0 mmol/L (136-145)
[2025-05-17] MEDS: Insulin Lispro 100 Unit/ML 3 ML KwikPen SUBCUT SCH (07:44)
[2025-05-17] MEDS: metFORMIN 500 MG Tab.ER PO SCH (09:08)
[2025-05-17] MEDS: Nystatin Topical Powder 15 GM Bottle TOP SCH (14:00)
[2025-05-29 07:52] LABS: BLOOD UREA NITROGEN,BUN 23.0 mg/dL (7-18); CARBON DIOXIDE,CO2 29.6 mmol/L (21.0-32.0); CHLORIDE,CL 110.0 mmol/L (98-107); CREATININE 1.64 mg/dL (0.51-1.17); EST CRCL DRUG DOSING (CG) 44.03 mL/min; GLUCOSE RANDOM 85.0 mg/dL (70-140); POTASSIUM,K 4.3 mmol/L (3.5-5.1); SODIUM,NA 146.0 mmol/L (136-145)
[2025-05-29 07:53] LABS: ESTIMATED GFR 44.0 mL/min (>=60)
== END 2025-05-29 12:45 | disposition home or self-care (01) | DRG 948 ==
LOC: KA.MS 19:47
PROVIDERS: ADMIT Family Medicine; ATTEND Family Medicine
DX: R53.81 Other malaise (principal); E66.2 Morbid (severe) obesity with alveolar hypoventilation; Z68.43 Body mass index [BMI] 50.0-59.9, adult; I48.19 Other persistent atrial fibrillation; E11.9 Type 2 diabetes mellitus without complications; I12.9 Hypertensive chronic kidney disease with stage 1 through stage 4 chronic kidney disease, or unspecified chronic kidney disease; H26.9 Unspecified cataract; H91.90 Unspecified hearing loss, unspecified ear; H54.7 Unspecified visual loss; E78.00 Pure hypercholesterolemia, unspecified; K21.9 Gastro-esophageal reflux disease without esophagitis; N42.9 Disorder of prostate, unspecified; E11.22 Type 2 diabetes mellitus with diabetic chronic kidney disease; N18.31 Chronic kidney disease, stage 3a; Z85.46 Personal history of malignant neoplasm of prostate; Z79.899 Other long term (current) drug therapy; Z88.0 Allergy status to penicillin; Z79.84 Long term (current) use of oral hypoglycemic drugs; Z86.16 Personal history of COVID-19; Z99.81 Dependence on supplemental oxygen; Z79.01 Long term (current) use of anticoagulants
CPT/HCPCS: 36415; 51702; 80048; 82947; 85025; 97110-GO; 97110-GP; 97116-GP; 97129-GO; 97161-GP; 97165-GO; 97530-GO; 97535-GO; A9270-GY; Q3014